=== PATIENT | female | born 1980 | race Caucasian/White ===

== ENCOUNTER 2019-07-29 12:32 | Inpatient (IN) ==
[2019-07-29] MEDS ORDERED: SALINE LOCK IV FLUID XX ONE (17:09)
[2019-07-29] MEDS ORDERED: BENTYL PO PRN (17:09)
[2019-07-29] MEDS ORDERED: SENOKOT PO PRN (17:11)
[2019-07-29] MEDS ORDERED: ZOFRAN IV PRN (17:11)
[2019-07-29] MEDS ORDERED: TYLENOL PO PRN (17:11)
[2019-07-29] MEDS ORDERED: NICODERM PATCH TD PRN (17:11)
[2019-07-29] MEDS ORDERED: D5W 1,000 ML IV PRN (17:11)
[2019-07-29] MEDS ORDERED: IMODIUM PO PRN (17:11)
[2019-07-29] MEDS ORDERED: MAALOX PLUS LIQUID PO PRN (17:11)
[2019-07-29] MEDS ORDERED: TUBERSOL ID ONE (17:11)
[2019-07-29] MEDS ORDERED: DULCOLAX PR PRN (17:11)
[2019-07-29] MEDS ORDERED: SEROQUEL PO PRN (17:11)
[2019-07-29] MEDS ORDERED: ZOFRAN ODT PO PRN (17:11)
[2019-07-29] MEDS ORDERED: PHENOBARBITAL IV PRN (17:11)
[2019-07-29] MEDS ORDERED: DESYREL PO PRN (17:11)
[2019-07-29 17:55] LABS: HEMOGLOBIN 13.5 g/dL (12.0-16.0); MCH 30.3 PG (27-31); MCHC 33.8 g/dL (33-37); MCV 89.7 FL (81-99); MPV 10.5 FL (7.4-10.4); RBC 4.46 XMIL (4.2-5.4); RDW 15.8 % (11.5-14.5); WBC 11.38 X1000 (4.8-10.8)
[2019-07-29] MEDS: LIBRIUM PO SCH (17:56)
[2019-07-29 18:11] LABS: AMYLASE 45 U/L (20-200); LIPASE 18 U/L (13-60)
[2019-07-29 18:13] LABS: AGAP 14; ALBUMIN 4.1 g/dL (3.5-5.0); ALKALINE PHOSPHATASE 68 U/L (32-104); BUN 11 mg/dL (8-22); CALCIUM 8.8 mg/dL (8.8-10.2); CHLORIDE 103 mmol/L (98-107); COSMO 280; CREATININE 0.7 mg/dL (0.5-0.9); ESTIMATED GFR > 60; GLUCOSE 78 mg/dL (70-104); GOT 33 U/L (10-30); GPT 15 U/L (10-36); POTASSIUM 3.2 mmol/L (3.5-5.1); SODIUM 141 mmol/L (136-145); TCO2 24 mmol/L (25-35); TOTAL PROTEIN 7.2 g/dL (6.3-8.3)
[2019-07-29 18:26] LABS: INR 0.9; PROTIME 12.6 Seconds (11.0-16.0)
[2019-07-29] MEDS: NS 1,000 ML IV SCH (20:48)
[2019-07-29 21:05] LABS: URINE SOURCE CLEAN CATCH
[2019-07-29] MEDS: ATARAX PO PRN (21:13)
[2019-07-29 21:19] LABS: UR AMPHETAMINES QUAL PRESUMPTIVE POSITIVE (NONE DETECT); UR BARBITUATES QUAL NONE DETECTED (NONE DETECT); UR BENZODIAZEPIN QUAL NONE DETECTED (NONE DETECT); UR CANNABINOIDS QUAL NONE DETECTED (NONE DETECT); UR COCAINE QUAL NONE DETECTED (NONE DETECT); UR METHADONE QUAL NONE DETECTED (NONE DETECT); UR METHAMPHETAMINE QUAL PRESUMPTIVE POSITIVE (NONE DETECT); UR OPIATES QUAL NONE DETECTED (NONE DETECT); UR OXYCODONE QUAL NONE DETECTED (NONE DETECT); UR PCP QUAL NONE DETECTED (NONE DETECT); UR PROPOXYPHENE QUAL NONE DETECTED (NONE DETECT); UR TCA QUAL NONE DETECTED (NONE DETECT)
[2019-07-29 21:21] LABS: BILIRUBIN URINE NEGATIVE (NEGATIVE); BLOOD URINE 1+ (NEGATIVE); CLARITY SL. CLOUDY (CLEAR); COLOR YELLOW; GLUCOSE URINE NEGATIVE (NEGATIVE); KETONE URINE 1+(Small) mg/dL (NEGATIVE); LEUKOCYTES URINE 1+ (NEGATIVE); NITRITE URINE POSITIVE (NEGATIVE); PROTEIN URINE NEGATIVE (NEGATIVE); UROBILINOGEN URINE NORMAL
[2019-07-29 21:22] LABS: URINE BACTERIA 4+ /HFP
[2019-07-29 21:23] LABS: URINE RBC <10 /HPF (<10)
[2019-07-30] MEDS: LIBRIUM PO SCH ×4 (00:17→18:14)
[2019-07-30] MEDS: PROTONIX PO SCH (06:18)
[2019-07-30] MEDS ORDERED: KLOR-CON PO ONE (07:13)
[2019-07-30] MEDS: VITAMIN B-1 PO SCH (08:00)
[2019-07-30] MEDS: FOLIC ACID PO SCH (08:00)
[2019-07-30] MEDS: THERA M PLUS PO SCH (08:00)
[2019-07-30] MEDS ORDERED: M.V.I.-12 10 ML, FOLIC ACID 1 MG, MAGNESIUM SULFATE 1 GM, THIAMINE 100 MG in NS 1,000 ML IV ONE (09:00)
[2019-07-30] MEDS: NS 1,000 ML IV SCH ×2 (09:05→19:51)
[2019-07-30] MEDS: MOTRIN PO PRN ×2 (10:21→19:51)
--- NOTE | 2019-07-30 18:10 | PROGRESS NOTE ---
DATE: 07/30/2019 SUBJECTIVE: Patient notes that she is feeling a little bit better. She is having less tremors. Did sleep a little bit last night. Denies any fevers or chills. Denies chest pain, palpitations. Notes her muscle aches are improving. PHYSICAL EXAMINATION: Vital Signs: Reviewed. She is awake, alert, oriented. She is in no current respiratory distress. HEENT: Normocephalic. Neck: Supple. Cardiovascular: Regular rate. No murmurs. Chest: Clear. Abdomen: Soft. Extremities: Moves all extremities. Neurologic: No focal changes. Skin: Warm and dry. No rash. ASSESSMENT: 1. Nausea and vomiting. 2. Abdominal pain. 3. Tremors. 4. Myalgias. 5. Paresthesias. 6. Paroxysmal sweating. 7. Polysubstance use and abuse. 8. Alcohol use and abuse. PLAN: We are going to continue patient in the hospital. Continue to wean her Librium as tolerated. Continue counseling. Further orders as needed. cc: Huy Sahu MD
[2019-07-30] MEDS: ROBAXIN PO PRN (19:44)
[2019-07-31] MEDS: LIBRIUM PO SCH ×5 (01:08→20:30)
[2019-07-31] MEDS: NS 1,000 ML IV SCH (03:37)
[2019-07-31] MEDS: PROTONIX PO SCH (06:05)
[2019-07-31] MEDS: VITAMIN B-1 PO SCH (11:48)
[2019-07-31] MEDS: ROBAXIN PO PRN ×2 (11:48→20:46)
[2019-07-31] MEDS: THERA M PLUS PO SCH (11:48)
[2019-07-31] MEDS: FOLIC ACID PO SCH (11:48)
[2019-07-31] MEDS: ATARAX PO PRN ×2 (11:58→19:27)
[2019-07-31] MEDS ORDERED: INDERAL PO SCH (16:30)
[2019-07-31] MEDS ORDERED: EFFEXOR XR PO SCH (16:30)
[2019-07-31] MEDS ORDERED: LEVAQUIN PO ONE (17:21)
[2019-07-31 20:13] VITALS: BP 147/110
[2019-07-31] MEDS ORDERED: LIBRIUM PO ONE (20:31)
--- NOTE | 2019-07-31 21:07 | PROGRESS NOTE ---
DATE: 07/31/2019 SUBJECTIVE: Patient notes that she is feeling a lot better. Still having some tremors, but they are much improved. Denies any fevers or chills. Denies any GI or issues currently. PHYSICAL EXAMINATION: Vital Signs: Reviewed. She is awake, alert. She is in no respiratory distress. HEENT: Normocephalic. Neck: Supple. Cardiovascular: Regular rate. Chest: Clear. Abdomen: Soft. Extremities: Moves all extremities. Neurologic: No focal changes. Skin: Warm, dry. No rashes. ASSESSMENT: 1. Escherichia coli urinary tract infection, sensitive to Levaquin. We will start this. 2. Polysubstance use and abuse. We will continue weaning Librium. Again discussed with patient Vivitrol versus naltrexone for medication assisted therapy. 3. Tremors. 4. Myalgias. 5. Paresthesias. PLAN: 1. We will continue patient in the hospital. 2. Place her on Levaquin. 3. Continue to wean her Librium. 4. Hopefully, we can start Vivitrol tomorrow and discharge if she continues to improve. cc: Huy Sahu MD
[2019-08-01] MEDS ORDERED: LEVAQUIN PO SCH (09:00)
--- NOTE | 2019-08-04 10:52 | HISTORY AND PHYSICAL ---
CHIEF COMPLAINT: Nausea, vomiting. HISTORY OF PRESENT ILLNESS: The patient is a 39-year-old female who presented to [facility] secondary to severe alcoholism. States that she has been abusing alcohol as well as benzodiazepines. She is taking up to 30 Xanax in a day. She states she is undergoing divorce. She is stressed, anxious. Notes that she just had a seizure after trying to stop cold turkey on her own. PAST SUBSTANCE ABUSE HISTORY: The patient was in [place] in 2009 for 1 day. She was sent to the ER, and did not return. In 2015, she was in [facility] for 28 days, relapsed after 2 weeks. In 2018, she was put on Suboxone by her psychiatrist, and then started abusing Suboxone. She has been abusing Percocet, muscle relaxers for the past 2 years. Notes that substance abuse has caused relationship problems. She is getting . It has caused legal problems, health problems with a seizure, financial problems. She started drinking at age 13, currently drinks between 12 beers and a liter a day, has been doing this for 3 to 4 months. Started marijuana at 18. Started Xanax at 16. Presently, she has been abusing them off and on, has had up to 30 in a day. Started meth at 39, has been smoking daily. Started hallucinogens at 17, stopped at age 19. Started opiates at age 17, has been abusing off and on ever since. Started smoking at age 13, had been up to 2 packs a day. Currently, she has been smoking off and on for the past 6 months. FAMILY HISTORY: Noncontributory. PAST MEDICAL HISTORY: She had a seizure yesterday secondary to benzodiazepine and alcohol withdrawal. She has chronic pain, chronic anxiety, PTSD, mitral valve prolapse, blackouts secondary to alcohol and Xanax, had a concussion in her childhood, had her first seizure yesterday secondary to withdrawal, history of hypertension, asthma, although does not treat this. MEDICATIONS: Effexor 75, propranolol, Seroquel, trazodone. ALLERGIES: No known drug allergies. REVIEW OF SYSTEMS: CINA score is 47 secondary to significant tremors, myalgias, paresthesias, paroxysmal sweating. She is unable sit still. She is constantly fidgeting back and forth. She is having difficulty concentrating, difficulty answering questions. Denies any fevers or chills. Denies blurred vision, change in vision. Denies any focalized numbness, tingling, or weakness in her extremities. Denies any dysuria, frequency, urgency, hesitancy, polyuria, or polydipsia. Denies skin rashes, weight loss, or weight gain. PHYSICAL EXAMINATION: VITAL SIGNS: Reviewed. GENERAL: She is awake, alert, oriented, although difficult to answer questions. She does pause between answers. HEENT: Normocephalic. NECK: Supple. CARDIOVASCULAR: Regular rate. CHEST: Clear. ABDOMEN: Soft. EXTREMITIES: Moves all extremities. NEUROLOGIC: She has no focal changes, although she is fidgety, anxious, constantly moving about on exam. She has visible tremors with her arms at rest. SKIN: Warm and dry. No rashes. ASSESSMENT: 1. Nausea and vomiting. 2. Abdominal pain. 3. Myalgias. 4. Paresthesias. 5. Paroxysmal sweating. 6. Tremors. 7. Alcohol and benzodiazepine abuse and acute withdrawal. 8. Recent seizure. PLAN: Will admit the patient to the hospital. Place her on high-dose Librium taper. Continue counseling. Continue to follow. Will monitor for withdrawal. cc: Huy Sahu MD
--- NOTE | 2019-08-04 15:01 | DISCHARGE SUMMARY ---
ADMISSION DATE: 07/29/2019 DISCHARGE DATE: 07/31/2019 DISCHARGE DIAGNOSES: 1. Patient left AMA. 2. Nausea and vomiting, resolved. 3. Abdominal pain, resolved. 4. Myalgias, resolved. 5. Tremors, resolved. 6. Paresthesias, improved. 7. Alcohol abuse withdrawal and stabilization. 8. Opiate abuse withdrawal and stabilization. 9. Polysubstance use and abuse. BRIEF HOSPITAL COURSE: The patient was admitted to the hospital, treated in the usual fashion, placed on high-dose Librium taper. She tolerated very well. Unfortunately, her anxiety seems to be more the cause of her leaving the hospital. She does not visibly appear to be in any withdrawal. Her heart rate is normal. Blood pressure is stable. No discharge disposition was able to be performed as she left against medical advice. cc: Huy Sahu MD
== END 2019-07-31 22:00 | disposition left against medical advice (07) | DRG 392 ==
LOC: P.DIRADM 16:19 → P.MEDSURG 16:52
PROVIDERS: ADMIT Family Medicine; ATTEND Family Medicine

== ENCOUNTER 2019-08-02 12:44 | Inpatient (IN) ==
[2019-08-02] MEDS ORDERED: M.V.I.-12 10 ML, FOLIC ACID 1 MG, MAGNESIUM SULFATE 1 GM, THIAMINE 100 MG in NS 1,000 ML IV ONE (15:59)
[2019-08-02] MEDS ORDERED: IMODIUM PO PRN (15:59)
[2019-08-02] MEDS ORDERED: TYLENOL PO PRN (15:59)
[2019-08-02] MEDS ORDERED: D5W 1,000 ML IV PRN (15:59)
[2019-08-02] MEDS ORDERED: NICODERM PATCH TD PRN (15:59)
[2019-08-02] MEDS ORDERED: ZOFRAN ODT PO PRN (15:59)
[2019-08-02] MEDS ORDERED: DESYREL PO PRN (15:59)
[2019-08-02] MEDS ORDERED: MAALOX PLUS LIQUID PO PRN (15:59)
[2019-08-02] MEDS ORDERED: SALINE LOCK IV FLUID XX ONE (15:59)
[2019-08-02] MEDS ORDERED: SEROQUEL PO PRN (15:59)
[2019-08-02] MEDS ORDERED: SENOKOT PO PRN (15:59)
[2019-08-02] MEDS ORDERED: PHENOBARBITAL IV PRN (15:59)
[2019-08-02] MEDS ORDERED: ZOFRAN IV PRN (15:59)
[2019-08-02] MEDS ORDERED: DULCOLAX PR PRN (15:59)
[2019-08-02] MEDS ORDERED: BENTYL PO PRN (15:59)
[2019-08-02] MEDS ORDERED: TUBERSOL ID ONE (15:59)
[2019-08-02] MEDS ORDERED: MOTRIN PO PRN (15:59)
[2019-08-02] MEDS ORDERED: ATARAX PO PRN (15:59)
[2019-08-02] MEDS ORDERED: ATIVAN IV ONE (16:19)
[2019-08-02 17:18] LABS: AMYLASE 59 U/L (20-200); LIPASE 22 U/L (13-60)
[2019-08-02 17:21] LABS: AGAP 12; ALKALINE PHOSPHATASE 63 U/L (32-104); BUN 10 mg/dL (8-22); CALCIUM 9.5 mg/dL (8.8-10.2); CHLORIDE 101 mmol/L (98-107); COSMO 279; CREATININE 0.6 mg/dL (0.5-0.9); ESTIMATED GFR > 60; GLUCOSE 80 mg/dL (70-104); GOT 70 U/L (10-30); GPT 57 U/L (10-36); POTASSIUM 4.7 mmol/L (3.5-5.1); SODIUM 141 mmol/L (136-145); TCO2 28 mmol/L (25-35)
[2019-08-02 17:36] LABS: HEMATOCRIT 41.2 % (37.0-47.0); HEMOGLOBIN 13.3 g/dL (12.0-16.0); MCH 30.1 PG (27-31); MCHC 32.3 g/dL (33-37); MCV 93.2 FL (81-99); MPV 9.9 FL (7.4-10.4); RBC 4.42 XMIL (4.2-5.4); RDW 15.9 % (11.5-14.5); WBC 6.56 X1000 (4.8-10.8)
[2019-08-02] MEDS: LIBRIUM PO SCH (18:11)
[2019-08-02 18:24] LABS: URINE SOURCE VOIDED
[2019-08-02 18:26] LABS: BILIRUBIN URINE NEGATIVE (NEGATIVE); BLOOD URINE NEGATIVE (NEGATIVE); CLARITY CLEAR (CLEAR); COLOR YELLOW; GLUCOSE URINE NEGATIVE (NEGATIVE); KETONE URINE NEGATIVE (NEGATIVE); LEUKOCYTES URINE NEGATIVE (NEGATIVE); NITRITE URINE NEGATIVE (NEGATIVE); PROTEIN URINE NEGATIVE (NEGATIVE); UROBILINOGEN URINE NORMAL
[2019-08-02 18:36] LABS: UR AMPHETAMINES QUAL NONE DETECTED (NONE DETECT); UR BARBITUATES QUAL NONE DETECTED (NONE DETECT); UR BENZODIAZEPIN QUAL PRESUMPTIVE POSITIVE (NONE DETECT); UR CANNABINOIDS QUAL NONE DETECTED (NONE DETECT); UR COCAINE QUAL NONE DETECTED (NONE DETECT); UR METHADONE QUAL NONE DETECTED (NONE DETECT); UR METHAMPHETAMINE QUAL NONE DETECTED (NONE DETECT); UR OPIATES QUAL NONE DETECTED (NONE DETECT); UR OXYCODONE QUAL NONE DETECTED (NONE DETECT); UR PCP QUAL NONE DETECTED (NONE DETECT); UR PROPOXYPHENE QUAL NONE DETECTED (NONE DETECT); UR TCA QUAL NONE DETECTED (NONE DETECT)
[2019-08-02] MEDS: ROBAXIN PO PRN (23:29)
[2019-08-03] MEDS: LIBRIUM PO SCH ×4 (00:05→18:20)
[2019-08-03] MEDS: ROBAXIN PO PRN ×3 (06:42→17:25)
[2019-08-03] MEDS ORDERED: PROTONIX PO SCH (07:00)
[2019-08-03] MEDS ORDERED: THERA M PLUS PO SCH (09:00)
[2019-08-03] MEDS ORDERED: EFFEXOR XR PO SCH (09:00)
[2019-08-03] MEDS ORDERED: VITAMIN B-1 PO SCH (09:00)
[2019-08-03] MEDS ORDERED: FOLIC ACID PO SCH (09:00)
[2019-08-03] MEDS ORDERED: INDERAL PO SCH (09:00)
--- NOTE | 2019-08-03 13:39 | PROGRESS NOTE ---
DATE: 08/03/2019 SUBJECTIVE: The patient states this morning she is feeling a little bit better. Last night she was agitated with the staff because she wanted IV Ativan. Denies any tremors. Denies any nausea this morning. Still having some paresthesias. Still does not feel well, still jittery and anxious. PHYSICAL EXAMINATION: Vital Signs: Reviewed. She is awake, alert. She is in no current respiratory distress. Blood pressure is stable, saturation 98% on room air. She is afebrile. HEENT: Normocephalic. Neck: Supple. Cardiovascular: Regular rate. No murmurs. Chest: Clear, nonlabored, no wheezing. Abdomen: Soft, nondistended, nontender. Extremities: Moves all extremities. No edema. Neurologic: No focal neurological changes. ASSESSMENT: 1. Nausea, vomiting. 2. Abdominal pain. 3. Myalgias. 4. Paresthesias. 5. Alcohol abuse and withdrawal with stabilization. 6. Chronic anxiety and depression. PLAN: Discussed with patient at great length that she does have elevated LFTs secondary to her alcoholism. Discussed again in very easy to understand terms, that this is not a halfway, she can leave when she desires to; however, we will not give her IV Ativan unless she is having outward obvious symptoms of withdrawal, which she is not. Discussed that she has a long history of abusing benzodiazepines and Ativan is a benzodiazepine and certainly does not need to be used IV for chronic anxiety. Discussed that benzodiazepines nor alcohol or cigarettes fix chronic anxiety. Discussed that she needs to seriously consider inpatient treatment, that going back home to her same environment is not usually adequate. She attempted to state that she has a strong environment to help her at home. I discussed if that were the case, then she would not have left AMA 2 days ago to go home and drink again. I did discuss medication assisted therapy, Vivitrol versus naltrexone. Attempted to answer questions. We will continue to wean Librium. Further orders as needed. cc: Huy Sahu MD
[2019-08-03 18:17] VITALS: BP 128/82
--- NOTE | 2019-08-04 10:42 | HISTORY AND PHYSICAL ---
CHIEF COMPLAINT: Alcohol withdrawal. HISTORY OF PRESENT ILLNESS: The patient is an unfortunate 39-year-old female who has a long-time history of alcohol abuse and withdrawal. She actually was just in another in [facility] a few days ago but became anxious, left AMA and went home and started drinking. She went back to the ER and again left there AMA. Currently, she is in mild withdrawal with minimal tremors, some nausea, some skin crawling. Denies any fevers or chills. SOCIAL HISTORY: Patient is getting . She is currently in the room with her boyfriend. She does drink as noted below. Denies smoking. PAST MEDICAL HISTORY: She reports a seizure for the 1st time in June secondary to alcohol withdrawal at home, lasted approximately 90 seconds. She reports degenerative disk disease with chronic pain, history of bulimia, anxiety, depression, history of mitral prolapse diagnosed in 1998, history of blackouts secondary to alcohol and Xanax withdrawal, history of hypertension, asthma, has PTSD. ALLERGIES: No known drug allergies. MEDICATIONS: Effexor 75, propranolol 25. REVIEW OF SYSTEMS: CINA score is 47 secondary to tremors, paresthesias, paroxysmal sweating, nausea, abdominal pain, skin crawling. Denies any diarrhea, constipation melena hematochezia. Denies any dysuria, frequency, urgency, hesitancy. States that she has had constant nausea, vomiting, dry heaves, moderate headache. She is easily confused, disoriented. Denies any blurred vision, change in vision. Denies any focalized weakness or numbness. Denies dysuria, frequency, urgency, hesitancy, constipation, melena, hematochezia. SUBSTANCE ABUSE HISTORY: She was in treatment in [place] in 2009 but left early. In 2015 she was at [facility] for 28 days and relapsed within a few weeks of leaving. In 2017 she was treated for mental health issues as well as opiate abuse. She was put on Suboxone but she notes that she abused it. 2018 in July she was in [facility] but left AMA after 3 days to go home and drink that day. Substance abuse history: Patient started drinking at age 13; currently drinks at least 12 beers a day for the last 3 or 4 months, started marijuana at 18, currently only uses occasionally. Started Valium and Xanax at 16. Took them as prescribed at first and then started abusing as well. Noted that she would take up to 30 bars a day. Started meth at age 39. Has been smoking daily for the last 3 or 4 days. Tried cocaine, only uses rarely. Tried hallucinogens from 17 to 19. Started opiates at age 17. Abuses them until she go on Suboxone. Currently, she is abusing Percocet. Started nicotine at age 13, has been attempting to stop for the last few months. FAMILY HISTORY: Noncontributory. PHYSICAL EXAMINATION: VITAL SIGNS: Reviewed. Patient is awake, alert. She is in no current respiratory distress although she has received 1 dose of 100 mg Librium, so it is possible to have curtailed her withdrawal symptoms. Her visible symptoms are not coherent with her reported symptoms. Currently she has no tremors. She is sitting still in the bed. She answers questions appropriately. HEENT: Normocephalic. NECK: Supple. CARDIOVASCULAR: Regular rate. CHEST: Clear, nonlabored. ABDOMEN: Soft, nondistended, nontender. EXTREMITIES: Moves all extremities. NEUROLOGIC: No changes. ASSESSMENT: 1. Nausea/ vomiting. 2. Abdominal pain. 3. Myalgias. 4. Paresthesias. 5. Paroxysmal sweating. 6. Tremors. 7. Polysubstance use and abuse. 8. Alcohol use and abuse. PLAN: We are going to again attempt to wean Ms. Gonzalez off of alcohol as well as her other poly substances. Discussed with her and her boyfriend in great detail that she certainly should consider long-term 60+ day further inpatient treatment. Given her history of relapse, she needs strong social support. She needs to change her thought processes actions and behaviors. Discussed there is absolutely no chance that she can wean off of alcohol, meth, benzos by staying asleep for the next several days nor can she stay successful her own. TIME SPENT: 40 minutes was spent in total care. cc: Huy Sahu MD
--- NOTE | 2019-08-04 14:58 | DISCHARGE SUMMARY ---
ADMISSION DATE: 08/02/2019 DISCHARGE DATE: 08/03/2019 DISCHARGE DIAGNOSES: 1. Patient again left AMA. 2. Nausea. 3. Reported vomiting without any visible signs in the hospital. 4. Reported tremors without any visible signs on discharge. 5. Severe anxiety. 6. Depression. 7. Polysubstance use and abuse. CONSULTATIONS: None. PROCEDURES: None. BRIEF HOSPITAL COURSE: The patient was admitted to the hospital, placed on high-dose Librium taper. She seems to be tolerating well from day 1 to day 2. I personally saw her on day 2. She was awake, alert, oriented. She was cuddled in the bed with I believe her boyfriend. Speech was regular. She had no tremors. No visible jittery. She had not had any vomiting. She did eat a full breakfast. Later that evening, as her Librium dose was scheduled to decrease, she demanded that it be kept at 100 mg. She had not actually even taken the 50 to see how her symptoms evolved. When she was told that she could not have 100 mg due to its potential sedative affects, she attempted to bargain to 75 mg. We again discussed with her that we are going to do 50 mg of Librium and if her symptoms were visibly worsened, then we would increase from there, but at some point, she has to decrease because you cannot survive on 100 mg of Librium forever. The patient unfortunately refused a 50 mg dose, refused to attempt to try, and left AMA. cc: Huy Sahu MD
== END 2019-08-03 19:29 | disposition left against medical advice (07) | DRG 894 ==
LOC: P.MEDSURG 16:18
PROVIDERS: ADMIT Family Medicine; ATTEND Family Medicine